=== PATIENT | female | born 1970 | race Caucasian/White ===

== ENCOUNTER 2021-01-02 18:17 | Emergency (ER) | payer OTHER ==
[~2021-01-02] VITALS: Ht 165.1 cm; Wt 59.0 kg
--- NOTE | 2021-01-02 19:13 | NUR ---
called the pt, not available
--- NOTE | 2021-01-02 19:25 | NUR ---
Dr. Hidalgo at bedside for MSE.
[2021-01-02] MEDS ORDERED: LIDOCAINE 1%-EPI 1:100,000 20 ML VIAL IJ ONE (19:30)
[2021-01-02] MEDS ORDERED: LIDOCAINE 2%-EPI 1:100,000 20 ML VIAL ONE (19:39)
[2021-01-02] MEDS ORDERED: AMOX-430 PO (19:47)
[2021-01-02] MEDS ORDERED: OXYC-128 PO (19:47)
[2021-01-02 19:57] VITALS: BP 135/87
--- NOTE | 2021-01-02 19:57 | NUR ---
Patient discharged to home in stable condition. Written and verbal after care instructions given. Patient verbalizes understanding of instructions. Stressed follow up or return to ER for worsening s/s. Patient out of ER with steady gait, no acute signs of distress, VSS, all belongings taken.
== END 2021-01-02 19:58 | disposition home or self-care (01) ==
LOC: ER 18:24
DX: K04.7 Periapical abscess without sinus (principal); K02.9 Dental caries, unspecified; Z88.2 Allergy status to sulfonamides
CPT/HCPCS: A4663